=== PATIENT | female | born 1980 | race Caucasian/White ===

== ENCOUNTER 2016-08-23 14:00 | Emergency (ER) | payer SELFPAY ==
[~2016-08-23] VITALS: Ht 177.8 cm; Wt 120.0 kg
[~2016-08-23 14:00] MED LIST: ALBU8I INH; KETO10 PO; METH750T2 PO; SYNT175T PO; XANA1TAB6 PO
[2016-08-23 14:02] VITALS: BP 199/109; PULSE 86; RESP 20; TEMP 98; O2SAT 97
[2016-08-23] MEDS ORDERED: SODIUM CHLOR 0.9% 1000 ML INJ 1,000 ML IV SCH ×2 (14:33→15:58)
[2016-08-23] MEDS ORDERED: ALPR2TAB3 PO (14:33)
[2016-08-23] MEDS ORDERED: [UNRECOGNIZED DRUG - OTHER] (14:33)
[2016-08-23] MEDS ORDERED: MORPHINE SULFATE 4 MG/ML INJ IV PUSH ONE (14:45)
[2016-08-23] MEDS ORDERED: ONDANSETRON HCL 4 MG/2 ML VIAL IVP ONE (14:45)
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
[2016-08-23 15:14] LABS: AUTOMATED NEUTROPHIL # 7.4 TH/MM3 (1.8-7.7); BASOPHIL # 0.1 TH/MM3 (0-0.2); BASOPHIL % 0.9 % (0.0-2.0); EOSINOPHIL # 0.4 TH/MM3 (0-0.4); EOSINOPHIL % 3.3 % (0.0-4.0); HEMATOCRIT 45.9 % (35.0-46.0); HEMO FLAGS DIFF FINAL; LYMPH % 28.5 % (9.0-44.0); LYMPHOCYTE # 3.4 TH/MM3 (1.0-4.8); MEAN CELL VOLUME 89.3 FL (80.0-100.0); MEAN CORPUSCULAR HEMOGLOBIN 30.3 PG (27.0-34.0); MEAN CORPUSCULAR HGB CONC 33.9 % (32.0-36.0); MONO % 4.6 % (0.0-8.0); NEUT % 62.7 % (16.0-70.0); PLATELET COUNT 383 TH/MM3 (150-450); RED BLOOD COUNT 5.14 MIL/MM3 (4.00-5.30); RED CELL DISTRIBUTION WIDTH 15.2 % (11.6-17.2); WHITE BLOOD COUNT 11.9 TH/MM3 (4.0-11.0)
[2016-08-23 15:35] LABS: BLOOD, URINE MOD (NEG); COMMENT (UR) CULT NOT INDICATED; CULTURE IF INDICATED CULT NOT INDICATED; GLUCOSE,URINE NEG (NEG); KETONE, URINE NEG (NEG); MUCUS URINE FEW /lpf (OCC); NITRITE,URINE NEG (NEG); SQUAMOUS EPITHELIAL CELL URINE 7 /hpf (0-5); URINE COLOR YELLOW (YELLW/STRAW)
[2016-08-23 15:36] LABS: ANION GAP 4 MEQ/L (5-15); AST (GOT) 113 U/L (15-37); BICARBONATE 29.8 MEQ/L (21.0-32.0); BLOOD UREA NITROGEN 13 MG/DL (7-18); CHLORIDE 101 MEQ/L (98-107); GLOMERULAR FILTRATION RATE 45 ML/MIN (>89); POTASSIUM 3.9 MEQ/L (3.5-5.1); SODIUM (NA) 135 MEQ/L (136-145)
[2016-08-23 15:40] LABS: ALKALINE PHOSPHATASE 70 U/L (45-117); ALT (GPT) 60 U/L (10-53); TOTAL BILIRUBIN ADULT 0.4 MG/DL (0.2-1.0)
[2016-08-23 15:59] VITALS: RESP 16
--- NOTE | 2016-08-23 16:17 | RADRPT ---
EXAM DATE/TIME: 08/23/2016 15:31 [facility] COMPARISON: No previous studies available for comparison. INDICATIONS : Right upper quadrant pain. MEDICAL HISTORY : Hypertension. Hashimotos. Pericardial effusion. HPV. SURGICAL HISTORY : Laparscopic knee surgery. ENCOUNTER: Initial ACUITY: 1 month PAIN SCORE: 7/10 LOCATION: Right upper quadrant MEASUREMENTS: LIVER: 21.6 cm length COMMON DUCT: 8 mm RIGHT KIDNEY: 11.0 x 5.3 x 4.1 cm FINDINGS: LIVER: There is marked hepatomegaly. No focal lesions seen within the liver. Hepatopedal flow is seen in t he portal vein. COMMON DUCT: No intraluminal mass or stone visualized. GALLBLADDER: Contains no stones, demonstrates no wall thickening or pericholecystic fluid. PANCREAS: The visualized portions are within normal limits. RIGHT KIDNEY: No evidence of hydronephrosis, stone, or mass. CONCLUSION: 1. Hepatomegaly without focal lesion in the liver. 2. No gallstones seen. Common bile duct measures 8 mm which is slightly above normal limits, but no filling defect seen and no intrahepatic ductal dilatation. Jake Teresa MD on August 23, 2016 at 16:14 Board Certified Radiologist. This report was verified electronically.
--- NOTE | 2016-08-23 17:05 | RADRPT ---
EXAM DATE/TIME: 08/23/2016 16:24 [facility] COMPARISON: CT ABDOMEN & PELVIS W/O CONTRAST, April 10, 2016, 13:03. INDICATIONS : Right flank pain. Urinary frequency. ORAL CONTRAST: No oral contrast ingested. RADIATION DOSE: 17.11 CTDIvol (mGy) MEDICAL HISTORY : Cardiovascular disease. Hypertension. SURGICAL HISTORY : None. ENCOUNTER: Initial ACUITY: 1 day PAIN SCALE: 4/10 LOCATION: Right flank TECHNIQUE: Volumetric scanning of the abdomen and pelvis was performed. Using automated exposure control and ad justment of the mA and/or kV according to patient size, radiation dose was kept as low as reasonably achievable to obtain optimal diagnostic quality images. FINDINGS: Right side: No calcified renal stones. No evidence of hydronephrosis. The right ureter is normal dimension with out calcification. Left side: No calcified stones. No evidence of hydronephrosis. Left ureter is normal dimension without calcifi cation. Bladder: Smooth margins. No intraluminal calcifications. Other: Anteverted uterus. No evidence of free fluid. Loops of small bowel are normal in diameter. No calc ified gallstones. CONCLUSION: Negative renal colic CT. Jake Teresa MD on August 23, 2016 at 17:02 Board Certified Radiologist. This report was verified electronically.
[2016-08-23] MEDS ORDERED: ZOFR4TAB PO (17:17)
[2016-08-23] MEDS ORDERED: TRAM50TA PO (17:17)
[2016-08-23 17:29] LABS: APTT (PATIENT) 34.3 SEC (24.3-30.1)
[2016-08-23] MEDS ORDERED: ONDANSETRON HCL 4 MG/2 ML VIAL IV PUSH ONE (18:00)
== END 2016-08-23 17:59 | disposition home or self-care (01) ==
LOC: NEPC 14:00
DX: N23 Unspecified renal colic (principal); R30.0 Dysuria; R35.8 Other polyuria; R31.9 Hematuria, unspecified; D72.829 Elevated white blood cell count, unspecified; R79.89 Other specified abnormal findings of blood chemistry; E07.9 Disorder of thyroid, unspecified; I10 Essential (primary) hypertension; F17.200 Nicotine dependence, unspecified, uncomplicated; Z87.442 Personal history of urinary calculi; Z87.09 Personal history of other diseases of the respiratory system; Z86.59 Personal history of other mental and behavioral disorders; Z86.79 Personal history of other diseases of the circulatory system; Z87.39 Personal history of other diseases of the musculoskeletal system and connective tissue; Z87.42 Personal history of other diseases of the female genital tract
CPT/HCPCS: 74176; 76705; 80053; 81001; 83605; 84703; 85025; 85610; 85730; 96361; 96374; 96375; 96376; 99284; J2270; J2405; J7030

== ENCOUNTER 2016-09-07 19:27 | Emergency (ER) | payer SELFPAY ==
[~2016-09-07] VITALS: Ht 177.8 cm; Wt 118.2 kg
[~2016-09-07 19:27] MED LIST changes: -ALBU8I INH; +ALPR2TAB3 PO; -KETO10 PO; -METH750T2 PO; -SYNT175T PO; +TRAM50TA PO; -XANA1TAB6 PO; +ZOFR4TAB PO; +[UNRECOGNIZED DRUG - OTHER]
[2016-09-07 19:28] VITALS: BP 152/98; PULSE 76; RESP 16; TEMP 97.6; O2SAT 96
[2016-09-07] MEDS ORDERED: AUGM875T PO (20:05)
[2016-09-07] MEDS ORDERED: CORT1SOL LEFT EAR (20:05)
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
== END 2016-09-07 20:34 | disposition home or self-care (01) ==
LOC: NEPB 19:27
DX: H60.502 Unspecified acute noninfective otitis externa, left ear (principal); H66.002 Acute suppurative otitis media without spontaneous rupture of ear drum, left ear; J45.909 Unspecified asthma, uncomplicated; I10 Essential (primary) hypertension; F17.210 Nicotine dependence, cigarettes, uncomplicated; F12.90 Cannabis use, unspecified, uncomplicated
CPT/HCPCS: 99282